=== PATIENT | female | born 1995 | race Caucasian/White ===

== ENCOUNTER 2023-07-24 18:45 | Emergency (ER) | payer MEDICAID ==
[~2023-07-24] VITALS: Ht 162.6 cm; Wt 59.0 kg
[2023-07-24 19:07] VITALS: BP_SYST 113; PULSE 85; RESP 18; TEMP 98; O2SAT 99
[2023-07-24 20:50] LABS: BILIRUBIN,URINE NEGATIVE (NEGATIVE); CLARITY/URINE Clear (CLEAR); COLOR,URINE YELLOW (YELLOW); GLUCOSE,URINE NEGATIVE (NEGATIVE); KETONES,URINE NEGATIVE (NEGATIVE); LEUKOCYTE ESTERASE ,URINE NEGATIVE (NEGATIVE); NITRITE, URINE NEGATIVE (NEGATIVE); PROTEIN URINE NEGATIVE (NEGATIVE); UROBILINOGEN,URINE 0.2 (0.2-1.0)
[2023-07-24 20:54] LABS: BLOOD, URINE TRACE (NEGATIVE)
[2023-07-24 21:27] LABS: BACTERIA,URINE FEW /HPF (None Seen); WBC,URINE 0-3 /HPF (0-3)
== END 2023-07-24 20:00 | disposition left against medical advice (07) ==
LOC: SED 18:45
DX: O26.891 Other specified pregnancy related conditions, first trimester (principal); O00.90 Unspecified ectopic pregnancy without intrauterine pregnancy; Z3A.09 9 weeks gestation of pregnancy; Z88.5 Allergy status to narcotic agent; Z79.899 Other long term (current) drug therapy
CPT/HCPCS: 36415; 76801; 81000; 81025; 84702; 99284